=== PATIENT | male | born 1980 | race Caucasian/White ===

== ENCOUNTER 2017-07-24 09:55 | Emergency (ER) | payer BC, OTHER ==
[2017-07-24] MEDS ORDERED: Lidocaine 1% 20 ML MDV INJECT ONE (10:07)
[2017-07-24] MEDS ORDERED: Bacitracin Oint 1 GM U/D Packet TOP ONE (10:18)
--- NOTE | 2017-07-24 10:24 | EDM.PDOC ---
ED HPI GENERAL MEDICAL PROBLEM - General Chief Complaint: Laceration Stated Complaint: LT LOWER LEG HURTS Time Seen by Provider: 07/24/17 10:07 Source of Information: Reports: Patient History Limitations: Reports: No Limitations - History of Present Illness INITIAL COMMENTS - FREE TEXT/NARRATIVE: HISTORY AND PHYSICAL: History of present illness: Patient is a 37-year-old male who presents to the emergency room with complaints of laceration to the left medial tib-fib. He states he was using a saw and the back of the machine hit his right calf muscle and swung around hitting the left garcia, resulting in a laceration. He denies any numbness or tingling to his distal extremities. Tetanus is up-to-date. Review of systems: As per history of present illness and below otherwise all systems reviewed and negative. Past medical history: As per history of present illness and as reviewed below otherwise noncontributory. Surgical history: As per history of present illness and as reviewed below otherwise noncontributory. Social history: No reported history of drug or alcohol abuse. Family history: As per history of present illness and as reviewed below otherwise noncontributory. Physical exam: General: Well-developed and well-nourished 37-year-old male. Alert and oriented. Nontoxic appearing and in no acute distress. HEENT: Atraumatic, normocephalic, pupils equal and reactive bilaterally, negative for conjunctival pallor or scleral icterus, mucous membranes moist, throat clear, neck supple, nontender, trachea midline. No drooling or trismus noted. No meningeal signs Lungs: Clear to auscultation, breath sounds equal bilaterally, chest nontender. Heart: S1S2, regular rate and rhythm without overt murmur Abdomen: Soft, nondistended, nontender. Negative for masses or hepatosplenomegaly. Negative for costovertebral tenderness. Pelvis: Stable nontender. Genitourinary: Deferred. Rectal: Deferred. Skin: 2.5 cm gaping laceration to left medial mid lower extremity. Abrasion noted to right lateral calf. Intact, warm, dry. No lesions or rashes noted. Extremities: Moves all extremities per self without difficulty or deficits. Strong equal pulses bilaterally. Refill less than 3 seconds.He is negative for cords or calf pain. Neurovascular unremarkable. Neuro: Awake, alert, oriented. Cranial nerves II through XII unremarkable. Cerebellum unremarkable. Motor and sensory unremarkable throughout. Exam nonfocal. Notes: X-ray shows no foreign body, fracture or dislocations. Area was thoroughly cleansed with wound wash and chlorhexidine. No foreign bodies noted. Area was anesthetized with 1% lidocaine. Sterile technique was used. 4-0 nylon, 3 interrupted sutures applied. Patient tolerated well. Bacitracin, nonstick dressing secured with Shukri wrap plied to the left. He is requesting an Shukri wrap for the contusion to the right leg. Supportive care measures were reviewed. Signs and symptoms of infection that would prompt him to return were reviewed. Patient voices understanding and is agreeable to plan of care. He denies any further questions at this time. Diagnostics: X-ray Therapeutics: 1% lidocaine, wound care, suture repair, nonstick dressing Impression: Laceration Abrasion Plan: 1. Please monitor the area for signs of infection. Keep clean and dry. Sutures to be out in 10-12 days. 2. Tylenol and/or ibuprofen as needed for pain management. Rest, ice, and elevate both lower extremities. 3. Follow-up with your primary caregiver in the next 1-2 days. Return to the ED as needed and as discussed. Definitive disposition and diagnosis as appropriate pending reevaluation and review of above. Onset: Today Duration: Minutes: Left Lower Leg Pain Score (Numeric/FACES): 6 - Related Data Allergies Allergy/AdvReac Type Severity Reaction Status Date / Time codeine Allergy Intermediate Hives Verified 07/24/17 10:13 Home Meds: Home Meds Rivaroxaban [Xarelto] 20 mg PO DAILY 08/25/14 [History] Levothyroxine [Synthroid] 1 tab PO DAILY 07/24/17 [History] Past Medical History Cardiovascular History: Reports: Blood Clots/VTE/DVT Respiratory History: Reports: PE Endocrine/Metabolic History: Reports: Hypothyroidism Other Hematologic History: Factor 5 lyden - Infectious Disease History Infectious Disease History: Reports: Chicken Pox - Past Surgical History Other Male Surgeries/Procedures: visectomy Other Musculoskeletal Surgeries/Procedures:: back surgery Social & Family History - Family History Family Medical History: Noncontributory - Tobacco Use Smoking Status *Q: Former Smoker Years of Tobacco use: 15 Used Tobacco, but Quit: Yes Month/Year Tobacco Last Used: 2016 - Caffeine Use Caffeine Use: Reports: Energy Drinks - Alcohol Use Days Per Week of Alcohol Use: 7 Number of Drinks Per Day: 2 Total Drinks Per Week: 14 - Recreational Drug Use Recreational Drug Use: No ED ROS GENERAL - Review of Systems Review Of Systems: ROS reveals no pertinent complaints other than HPI. ED EXAM, SKIN/RASH Exam: See Below (See dictation) ED SKIN PROCEDURES - Laceration/Wound Repair Left medial calf Lac/Wound length In cm: 2.5 Appearance: Subcutaneous, Linear Distal NVT: Neuro & Vascular Intact, No Tendon Injury Anesthetic Type: Local Local Anesthesia - Lidocaine (Xylocaine): 1% Plain Local Anesthetic Volume: 5cc Skin Prep: Chlorhexidine (Hibiciens), Saline, Sterile Drape Saline Irrigation (cc's): 20 Exploration/Debridement/Repair: Wound Explored, No Foreign Material Found Closed with: Sutures Suture Size: 4-0 # of Sutures: 3 Suture Type: Interrupted Sterile Dressing Applied: Provider Tetanus Status Addressed: Yes Complications: No Course - Vital Signs Last Recorded V/S: Last Vital Signs Temp 95.4 F 07/24/17 10:08 Pulse 121 H 07/24/17 10:08 Resp 22 H 07/24/17 10:08 BP 130/96 H 07/24/17 10:08 Pulse Ox 99 07/24/17 10:08 - Orders/Labs/Meds Orders: Active Orders 24 hr Category Date Time Status Tibia Fibula Lt [CR] Stat Exams 07/24/17 10:18 Taken DME for Discharge [COMM] Stat Oth 07/24/17 11:07 Ordered Meds: Medications Discontinued Medications Generic Name Dose Route Start Last Admin Trade Name Emmanuel PRN Reason Stop Dose Admin Bacitracin 2 dose 07/24/17 10:18 07/24/17 10:29 Bacitracin Oint 1 Gm TOP 07/24/17 10:19 2 dose ONETIME ONE Administration Lidocaine HCl 20 ml 07/24/17 10:07 07/24/17 10:29 Xylocaine 1% INJECT 07/24/17 10:08 20 ml ONETIME ONE Administration Departure - Departure Time of Disposition: 11:10 Disposition: Home, Self-Care 01 Clinical Impression: Laceration, Abrasion - Discharge Information Instructions: Laceration Care, Adult, [id number] Referrals: PCP,None [Primary Care Provider] - Forms: ED Department Discharge Additional Instructions: The following information is given to patients seen in the emergency department who are being discharged to home. This information is to outline your options for follow-up care. We provide all patients seen in our emergency department with a follow-up referral. The need for follow-up, as well as the timing and circumstances, are variable depending upon the specifics of your emergency department visit. If you don't have a primary care physician on staff, we will provide you with a referral. We always advise you to contact your personal physician following an emergency department visit to inform them of the circumstance of the visit and for follow-up with them and/or the need for any referrals to a consulting specialist. The emergency department will also refer you to a specialist when appropriate. This referral assures that you have the opportunity for follow-up care with a specialist. All of these measure are taken in an effort to provide you with optimal care, which includes your follow-up. Under all circumstances we always encourage you to contact your private physician who remains a resource for coordinating your care. When calling for follow-up care, please make the office aware that this follow-up is from your recent emergency room visit. If for any reason you are refused follow-up, please contact the [facility] at and asked to speak to the emergency department charge nurse. [facility] [address] [place] [id number] 1. Please monitor the area for signs of infection. Keep clean and dry. Sutures to be out in 10-12 days. 2. Tylenol and/or ibuprofen as needed for pain management. Rest, ice, and elevate both lower extremities. 3. Follow-up with your primary caregiver in the next 1-2 days. Return to the ED as needed and as discussed. - My Orders Last 24 Hours: My Active Orders 07/24/17 10:18 Tibia Fibula Lt [CR] Stat 07/24/17 11:07 DME for Discharge [COMM] Stat - Assessment/Plan Last 24 Hours: My Active Orders 07/24/17 10:18 Tibia Fibula Lt [CR] Stat 07/24/17 11:07 DME for Discharge [COMM] Stat
[2017-07-24 11:21] VITALS: BP 136/89
--- NOTE | 2017-07-24 11:22 | CR ---
EXAMINATION: Left tibia and fibula HISTORY: Laceration COMPARISON: None TECHNIQUE: AP and lateral views FINDINGS/IMPRESSION: There is no acute osseous abnormality, dislocation, or fracture. Bone mineraliza tion and joint spaces appear preserved. No soft tissue swelling, foreign body, or subcutaneous gas ar e noted.
== END 2017-07-24 11:20 | disposition home or self-care (01) ==
LOC: MW.ED 09:55
DX: S81.812A Laceration without foreign body, left lower leg, initial encounter (principal); S80.811A Abrasion, right lower leg, initial encounter; E03.9 Hypothyroidism, unspecified; Z79.899 Other long term (current) drug therapy; Z88.5 Allergy status to narcotic agent; Z87.891 Personal history of nicotine dependence; W27.0XXA Contact with workbench tool, initial encounter
CPT/HCPCS: 73590-26-LT; 73590-LT; 99283

== ENCOUNTER 2018-11-03 19:10 | Observation (INO) | payer BC, MEDICAID ==
[2018-11-03] MEDS ORDERED: Sodium Chloride 0.9% 10 ML Syringe FLUSH PRN ×2 (19:12→22:52)
[2018-11-03] MEDS ORDERED: Sodium Chloride 0.9% 2.5 ML Syringe FLUSH PRN ×2 (19:12→22:52)
--- NOTE | 2018-11-03 19:24 | EDM.PDOC ---
ED HPI GENERAL MEDICAL PROBLEM - General Chief Complaint: Chest Pain Stated Complaint: BLOOD CLOT Time Seen by Provider: 11/03/18 19:16 Source of Information: Reports: Patient History Limitations: Reports: No Limitations - History of Present Illness INITIAL COMMENTS - FREE TEXT/NARRATIVE: HISTORY AND PHYSICAL: History of present illness: Patient is a 38-year-old male who presents to the emergency room with concerns of a PE and/or DVT. He states he has a history of PE and DVT and had previously been on anticoagulant therapy. History of Factor V. He had taken himself off of his Coumadin in May 2018, as he did not like the side effects he had experienced. He felt better after improving his diet and implementing exercise, and thought this would be sufficient to prevent any future blood clots. Over the last several days he has been riding in a vehicle and has noticed lower extremity swelling, pain and redness to the right calf. Has been resting and elevating the extremity over the past 2-3 days without any relief. Started to develop midsternal chest pain that goes into his back. Patient denies any fever, chills, headache, change in vision, syncope or near syncope. Denies any neck pain/stiffness, shortness of breath or cough. Denies any abdominal pain, nausea, vomiting, diarrhea, constipation or dysuria. Has not noted any blood in urine or stool. Patient has been eating and drinking appropriately. Review of systems: As per history of present illness and below otherwise all systems reviewed and negative. Past medical history: As per history of present illness and as reviewed below otherwise noncontributory. Surgical history: As per history of present illness and as reviewed below otherwise noncontributory. Social history: See social history for further information Family history: As per history of present illness and as reviewed below otherwise noncontributory. Physical exam: General: Well-developed and well-nourished 38-year-old male. Alert and oriented. Nontoxic appearing and in no acute distress. Vital signs are stable and have been reviewed by me, tachycardia noted. Service dog at bedside. HEENT: Atraumatic, normocephalic, pupils equal and reactive bilaterally, negative for conjunctival pallor or scleral icterus, mucous membranes moist, TMs normal bilaterally, throat clear, neck supple, nontender, trachea midline. No drooling or trismus noted. No meningeal signs. No hot potato voice noted. Lungs: Clear to auscultation, breath sounds equal bilaterally, chest nontender. Heart: S1S2, regular rate and rhythm, tachycardic- without overt murmur Abdomen: Soft, nondistended, nontender. Negative for masses or hepatosplenomegaly. Negative for costovertebral tenderness. Pelvis: Stable nontender. Genitourinary: Deferred. Rectal: Deferred. Skin: "Y" shaped erythema to the medial right calf with moderate swelling/edema of the right lower extremity. Otherwise skin is intact, warm, dry. No lesions or rashes noted. Extremities: Atraumatic, moves all extremities per self without difficulty or deficits, negative for cords or calf pain. Neurovascular unremarkable. Neuro: Awake, alert, oriented. Cranial nerves II through XII unremarkable. Cerebellum unremarkable. Motor and sensory unremarkable throughout. Exam nonfocal. Notes: Venous Doppler of the right lower extremity shows no DVT. Findings are consistent with acute superficial thrombophlebitis. CT chest shows: bilateral pulmonary emboli. A [id number] right pleural effusion with adjacent atelectasis. Partially imaged splenomegaly. Borderline thoracic lymph nodes, nonspecific. Dr Obrien was consult did on this case and agreeable to keeping this patient for further care and management. Diagnostics: CBC, CMP, UA, PT INR, CT angio-chest, ultrasound right lower extremity Therapeutics: IV fluids, Lovenox 100 subQ, Heparin Drip Impression: Medication non-compliance Thrombophlebitis, right lower extremity Bilateral PE Plan: Observation admission to Med/Surg Definitive disposition and diagnosis as appropriate pending reevaluation and review of above. Chest Pain Score (Numeric/FACES): 5 - Related Data Allergies Allergy/AdvReac Type Severity Reaction Status Date / Time codeine Allergy Intermediate Hives Verified 11/03/18 22:10 Home Meds: Home Meds Multivitamin/Iron/Folic Acid [Centrum Adults Tablet] 1 each PO DAILY 11/03/18 [ History] Past Medical History HEENT History: Reports: None Cardiovascular History: Reports: Blood Clots/VTE/DVT Respiratory History: Reports: PE Gastrointestinal History: Reports: None Genitourinary History: Reports: None Other Musculoskeletal History: patient reports he lifted dog yesterday, and felt a "pop" in right upper arm and has had pain ever since. Patient reports pain 10/10 ro right upper arm. Patient noted to have edema to right lower leg. Neurological History: Reports: None Psychiatric History: Reports: None Endocrine/Metabolic History: Reports: Hypothyroidism Other Hematologic History: Factor 5 lyden Immunologic History: Reports: None Oncologic (Cancer) History: Reports: None - Infectious Disease History Infectious Disease History: Reports: Chicken Pox - Past Surgical History Other Male Surgeries/Procedures: visectomy Other Musculoskeletal Surgeries/Procedures:: back surgery Social & Family History - Family History Family Medical History: Noncontributory - Tobacco Use Smoking Status *Q: Never Smoker - Caffeine Use Caffeine Use: Reports: Energy Drinks - Recreational Drug Use Recreational Drug Use: Yes Drug Use in Last 12 Months: Yes Recreational Drug Type: Reports: Marijuana/Hashish Recreational Drug Use Frequency: Socially ED ROS GENERAL - Review of Systems Review Of Systems: ROS reveals no pertinent complaints other than HPI. ED EXAM, GENERAL - Physical Exam Exam: See Below (See dictation) Course - Vital Signs Last Recorded V/S: Last Vital Signs Temp 97.9 F 11/03/18 22:14 Pulse 107 H 11/03/18 22:14 Resp 24 H 11/03/18 22:14 BP 121/73 11/03/18 22:14 Pulse Ox 94 L 11/03/18 22:14 - Orders/Labs/Meds Orders: Active Orders 24 hr Category Date Time Status Sodium Chloride 0.9% [Normal Saline] 1,000 ml Med 11/03/18 21:08 Active IV STAT Sodium Chloride 0.9% [Saline Flush] Med 11/03/18 19:12 Active 10 ml FLUSH ASDIRECTED PRN Sodium Chloride 0.9% [Saline Flush] Med 11/03/18 19:12 Active 2.5 ml FLUSH ASDIRECTED PRN Saline Lock Insert [OM.PC] Stat Oth 11/03/18 19:12 Ordered Medication Orders Sodium Chloride (Normal Saline) 1,000 mls @ 150 mls/hr IV STAT ONE Stop: 11/04/18 03:47 Last Admin: 11/03/18 21:28 Dose: 150 mls/hr Sodium Chloride (Saline Flush) 10 ml FLUSH ASDIRECTED PRN PRN Reason: Keep Vein Open Sodium Chloride (Saline Flush) 2.5 ml FLUSH ASDIRECTED PRN PRN Reason: Keep Vein Open Labs: Laboratory Tests 11/03/18 11/03/18 11/03/18 Range/Units 19:10 19:10 19:10 WBC 8.93 (4.0-11.0) K/uL RBC 5.32 (4.50-5.90) M/uL Hgb 15.2 (13.0-17.0) g/dL Hct 45.3 (38.0-50.0) % MCV 85.2 (80.0-98.0) fL MCH 28.6 (27.0-32.0) pg MCHC 33.6 (31.0-37.0) g/dL RDW Std Deviation 40.7 (28.0-62.0) fl RDW Coeff of Kavon 13 (11.0-15.0) % Plt Count 295 (150-400) K/uL MPV 9.90 (7.40-12.00) fL Neut % (Auto) 73.5 (48.0-80.0) % Lymph % (Auto) 9.7 L (16.0-40.0) % [place] % (Auto) 9.7 (0.0-15.0) % Eos % (Auto) 6.4 (0.0-7.0) % Baso % (Auto) 0.7 (0.0-1.5) % Neut # (Auto) 6.6 H (1.4-5.7) K/uL Lymph # (Auto) 0.9 (0.6-2.4) K/uL [place] # (Auto) 0.9 H (0.0-0.8) K/uL Eos # (Auto) 0.6 (0.0-0.7) K/uL Baso # (Auto) 0.1 (0.0-0.1) K/uL Nucleated RBC % 0.0 /100WBC Nucleated RBCs # 0 K/uL INR 0.97 Sodium 140 (136-148) mmol/L Potassium 4.0 (3.5-5.1) mmol/L Chloride 105 (98-107) mmol/L Carbon Dioxide 27.5 (21.0-32.0) mmol/L BUN 14 (7.0-18.0) mg/dL Creatinine 1.0 (0.8-1.3) mg/dL Est Cr Clr Drug Dosing 108.86 mL/min Estimated GFR (MDRD) > 60.0 ml/min Glucose 96 (74-106) mg/dL Calcium 8.6 (8.5-10.1) mg/dL Total Bilirubin 0.4 (0.2-1.0) mg/dL AST 16 (15-37) IU/L ALT 19 (14-63) IU/L Alkaline Phosphatase 82 (46-116) U/L Troponin I < 0.050 (0.000-0.056) ng/mL Total Protein 7.4 (6.4-8.2) g/dL Albumin 2.9 L (3.4-5.0) g/dL Globulin 4.5 H (2.6-4.0) g/dL Albumin/Globulin Ratio 0.6 L (0.9-1.6) Meds: Medications Generic Name Dose Route Start Last Admin Trade Name Freq PRN Reason Stop Dose Admin Sodium Chloride 1,000 mls @ 150 mls/hr 11/03/18 21:08 11/03/18 21:28 Normal Saline IV 11/04/18 03:47 150 mls/hr STAT ONE Administration Sodium Chloride 10 ml 11/03/18 19:12 Saline Flush FLUSH ASDIRECTED PRN Keep Vein Open Sodium Chloride 2.5 ml 11/03/18 19:12 Saline Flush FLUSH ASDIRECTED PRN Keep Vein Open Discontinued Medications Generic Name Dose Route Start Last Admin Trade Name Freq PRN Reason Stop Dose Admin Enoxaparin Sodium 100 mg 11/03/18 20:27 11/03/18 20:46 Lovenox SUBCUT 11/03/18 20:28 100 mg ONETIME ONE Administration Iopamidol 100 ml 11/03/18 20:22 11/03/18 21:10 Isovue-370 (76%) IVPUSH 11/03/18 20:23 100 ml ONETIME ONE Administration Departure - Departure Time of Disposition: 22:30 Disposition: Refer to Observation Clinical Impression: Bilateral pulmonary embolism, Noncompliance with medication regimen, Thrombophlebitis - My Orders Last 24 Hours: My Active Orders 11/03/18 19:12 Sodium Chloride 0.9% [Saline Flush] 10 ml FLUSH ASDIRECTED PRN Sodium Chloride 0.9% [Saline Flush] 2.5 ml FLUSH ASDIRECTED PRN Saline Lock Insert [OM.PC] Stat 11/03/18 21:08 Sodium Chloride 0.9% [Normal Saline] 1,000 ml IV STAT - Assessment/Plan Last 24 Hours: My Active Orders 11/03/18 19:12 Sodium Chloride 0.9% [Saline Flush] 10 ml FLUSH ASDIRECTED PRN Sodium Chloride 0.9% [Saline Flush] 2.5 ml FLUSH ASDIRECTED PRN Saline Lock Insert [OM.PC] Stat 11/03/18 21:08 Sodium Chloride 0.9% [Normal Saline] 1,000 ml IV STAT
[2018-11-03 19:44] LABS: BLOOD UREA NITROGEN,BUN 14 mg/dL (7.0-18.0); CARBON DIOXIDE,CO2 27.5 mmol/L (21.0-32.0); CHLORIDE,CL 105 mmol/L (98-107); GLUCOSE RANDOM 96 mg/dL (74-106); SODIUM,NA 140 mmol/L (136-148)
--- NOTE | 2018-11-03 20:20 | CR ---
INDICATION: Pain. TECHNIQUE: Portable upright AP view of the chest. COMPARISON: None. FINDINGS: Cardiac, mediastinal and hilar contours are within normal limits. Pulmonary vasculature is unremarkable. Lungs are grossly clear. No appreciable pleural fluid on this single view study. No pneumothorax. Nonspecific radiopaque foreign body overlying the left lower lateral hemithorax. IMPRESSION: No signs of acute thoracic disease. See above. Dictated by Leonardo Hartman MD @ 11/03/2018 8:19:06 PM Dictated by: Leonardo Hartman MD @ 11/03/2018 20:19:18 (Electronically Signed)
[2018-11-03] MEDS ORDERED: Iopamidol 755 Mg/ML 100 ML Bottle IVPUSH ONE (20:22)
[2018-11-03] MEDS ORDERED: Enoxaparin 100 MG/1 ML Syringe SUBCUT ONE (20:27)
--- NOTE | 2018-11-03 20:32 | US ---
INDICATION: Previous DVT and pulmonary embolus. On and off meds for treatment of such since May. Redness and pain right calf. TECHNIQUE: Ultrasound venous duplex lower right extremity. Compression venous exam was performed using soto-scale, color Doppler, and spectral Doppler imaging. COMPARISON: Right lower extremity venous ultrasound 03/15/2018 FINDINGS: Sonographic imaging demonstrates the right common femoral, deep femoral, superficial femoral, popliteal, posterior tibial, peroneal and greater saphenous and the contralateral left common femoral veins to be fully compressible with normal color Doppler blood flow. In the region of pain and redness, in the right medial mid calf there are superficial veins which do not compress on grayscale imaging indicating acute superficial thrombophlebitis. Remainder negative. IMPRESSION: : No DVT right leg. Sonographic findings consistent with acute superficial thrombophlebitis in the region of pain and redness in the right medial mid calf. Dictated by Erich Shah MD @ Nov 03 2018 8:26PM Signed by Dr. Ercih Shah @ Nov 03 2018 8:31PM
[2018-11-03] MEDS ORDERED: Sodium Chloride 0.9% 1,000 ML IV ONE (21:08)
--- NOTE | 2018-11-03 22:27 | CT ---
INDICATION: Chest pain and shortness of breath TECHNIQUE: CT chest pulmonary PE protocol acquired with IV contrast. 100 mL of Isovue 370 administered. COMPARISON: 03/15/2018 FINDINGS: Cardiovascular structures: Filling defects in bilateral segmental and subsegmental pulmonary arteries, right greater than left. Normal cardiac size and aortic caliber. Mediastinum and ramu: An apparent borderline superior right hilar lymph node and a borderline azygoesophageal lymph node. Shotty subcentimeter lymph nodes anterior to the distal esophagus, nonspecific. Lungs: Atelectatic changes in the right lower lobe and additional foci of minor compressive changes. Pleura and pericardium: A moderate to large right pleural effusion. Small anterior pericardial fluid. Chest wall and axilla: No mass or adenopathy. Upper abdomen: A 2.5 x 1.9 cm water attenuation superior hepatic lesion compatible with a cyst and a 1 cm anterior left hepatic low-density lesion which could represent an additional cyst. Partially imaged splenomegaly. A 1.2 cm left adrenal low-density nodule, probably an adenoma. Bones: Mild focal central compression along the T11 superior endplate. IMPRESSION: Bilateral pulmonary emboli. A [id number] right pleural effusion with adjacent atelectasis. Partially imaged splenomegaly. Borderline thoracic lymph nodes, nonspecific. Correlate clinically. The pertinent findings were discussed with Dr. Vásquez, by phone, on 11/03/2018 at 10:20 p.m.. Dictated by Guero Sterling MD @ 11/03/2018 10:26:29 PM Please note that all CT scans at this facility use dose modulation, iterative reconstruction, and/or weight-based dosing when appropriate to reduce radiation dose to as low as reasonably achievable. Dictated by: Guero Sterling MD @ 11/03/2018 22:26:39 (Electronically Signed)
[2018-11-03] MEDS ORDERED: Heparin Sodium 5,000 Units/ML Vial IVPUSH ONE (22:40)
[2018-11-03] MEDS ORDERED: Acetaminophen 325 MG Tab PO PRN (22:46)
[2018-11-03] MEDS: Heparin Sod,Pork In 0.45% Nacl 25,000 UNIT/500 ML IV.SOLN IV SCH (23:06)
[2018-11-04 04:38] LABS: BLOOD UREA NITROGEN,BUN 12 mg/dL (7.0-18.0); CARBON DIOXIDE,CO2 27.5 mmol/L (21.0-32.0); CHLORIDE,CL 106 mmol/L (98-107); GLUCOSE RANDOM 95 mg/dL (74-106); POTASSIUM,K 4.9 mmol/L (3.5-5.1); SODIUM,NA 139 mmol/L (136-148)
--- NOTE | 2018-11-04 07:41 | PCM.HP ---
H&P History of Present Illness - General Date of Service: 11/04/18 Admit Problem/Dx: Admission Diagnosis/Problem Admission Diagnosis/Problem Chest pain, rule out acute myocardial infarction Source of Information: Patient History Limitations: Reports: No Limitations - History of Present Illness Initial Comments - Free Text/Narative: The patient is a 38-year-old gentleman who had presented to the emergency department with severe chest pain and pressure along with some shortness of breath. The patient has a history of factor V Leiden mutation and had previously been taking Xarelto or Coumadin. The patient has a service dog who is with him. He has reported that this is for his seizure activity. The patient had taken himself off of all of his medications as he was concerned about the side effects. The patient says that he had been taking a long road trip and the result of this was that he had pain in his leg and he said he could feel the clot move up into his lungs. Onset of Symptoms: Reports: Gradual Duration of Symptoms: Reports: Day(s):, Improving Location: Reports: Chest, Lower Extremity, Right Quality: Reports: Ache, Pressure, Stabbing Severity: Moderate Improves with: Reports: Medication Worsens with: Reports: Movement Context: Reports: Travel Associated Symptoms: Reports: Cough, Shortness of Breath Chest Pain Score (Numeric/FACES): 5 - Related Data Allergies/Adverse Reactions: Allergies Allergy/AdvReac Type Severity Reaction Status Date / Time codeine Allergy Intermediate Hives Verified 11/03/18 22:10 Home Medications: Home Meds Multivitamin/Iron/Folic Acid [Centrum Adults Tablet] 1 each PO DAILY 11/03/18 [ History] Past Medical History HEENT History: Reports: None Cardiovascular History: Reports: Blood Clots/VTE/DVT Respiratory History: Reports: PE Gastrointestinal History: Reports: None Genitourinary History: Reports: None Other Musculoskeletal History: patient reports he lifted dog yesterday, and felt a "pop" in right upper arm and has had pain ever since. Patient reports pain 10/10 ro right upper arm. Patient noted to have edema to right lower leg. Neurological History: Reports: Seizure Psychiatric History: Reports: None Endocrine/Metabolic History: Reports: Hypothyroidism Other Hematologic History: Factor 5 lyden Immunologic History: Reports: None Oncologic (Cancer) History: Reports: None - Infectious Disease History Infectious Disease History: Reports: Chicken Pox - Past Surgical History Other Male Surgeries/Procedures: visectomy Other Musculoskeletal Surgeries/Procedures:: back surgery Social & Family History - Family History Family Medical History: Noncontributory - Tobacco Use Smoking Status *Q: Never Smoker Second Hand Smoke Exposure: No - Caffeine Use Caffeine Use: Reports: Energy Drinks - Recreational Drug Use Recreational Drug Use: Yes Drug Use in Last 12 Months: Yes Recreational Drug Type: Reports: Marijuana/Hashish Recreational Drug Use Frequency: Socially - Living Situation & Occupation Living situation: Reports: Single Occupation: Unemployed H&P Review of Systems - Review of Systems: Review Of Systems: See Below General: Reports: No Symptoms HEENT: Reports: No Symptoms Pulmonary: Reports: Shortness of Breath, Cough. Denies: Hemoptysis Cardiovascular: Reports: Chest Pain Gastrointestinal: Reports: No Symptoms Genitourinary: Reports: No Symptoms Musculoskeletal: Reports: No Symptoms Skin: Reports: No Symptoms Psychiatric: Reports: No Symptoms Neurological: Reports: Seizure Hematologic/Lymphatic: Reports: No Symptoms Immunologic: Reports: No Symptoms Exam - Exam Exam: See Below - Vital Signs Vital Signs: Last Vital Signs Temp 36.5 C 11/04/18 04:00 Pulse 88 11/04/18 04:00 Resp 18 11/04/18 04:00 BP 88/62 L 11/04/18 04:00 Pulse Ox 95 11/04/18 04:00 Weight: 104.961 kg - Exam Quality Assessment: No: Supplemental Oxygen General: Alert, Oriented HEENT: Conjunctiva Clear, EACs Clear, EOMI, Mucosa Moist & [place], Pupils Equal, PERRLA Neck: Supple, Trachea Midline Lungs: Clear to Auscultation, Normal Respiratory Effort Cardiovascular: Regular Rhythm, Normal S1, Normal S2, Tachycardia GI/Abdominal Exam: Normal Bowel Sounds, Soft, Non-Tender, No Distention Back Exam: Normal Inspection, Full Range of Motion Extremities: Normal Inspection, No Pedal Edema Skin: Warm, Dry, Intact Neurological: Cranial Nerves Intact Neuro Extensive - Mental Status: Alert, Oriented x3 Neuro Extensive - Motor, Sensory, Reflexes: CN II-XII Intact Psychiatric: Alert, Normal Affect - Patient Data Lab Results Last 24 hrs: Laboratory Results - last 24 hr 11/03/18 11/03/18 11/03/18 Range/Units 19:10 19:10 19:10 WBC 8.93 (4.0-11.0) K/uL RBC 5.32 (4.50-5.90) M/uL Hgb 15.2 (13.0-17.0) g/dL Hct 45.3 (38.0-50.0) % MCV 85.2 (80.0-98.0) fL MCH 28.6 (27.0-32.0) pg MCHC 33.6 (31.0-37.0) g/dL RDW Std Deviation 40.7 (28.0-62.0) fl RDW Coeff of Kavon 13 (11.0-15.0) % Plt Count 295 (150-400) K/uL MPV 9.90 (7.40-12.00) fL Neut % (Auto) 73.5 (48.0-80.0) % Lymph % (Auto) 9.7 L (16.0-40.0) % Lake % (Auto) 9.7 (0.0-15.0) % Eos % (Auto) 6.4 (0.0-7.0) % Baso % (Auto) 0.7 (0.0-1.5) % Neut # (Auto) 6.6 H (1.4-5.7) K/uL Lymph # (Auto) 0.9 (0.6-2.4) K/uL Lake # (Auto) 0.9 H (0.0-0.8) K/uL Eos # (Auto) 0.6 (0.0-0.7) K/uL Baso # (Auto) 0.1 (0.0-0.1) K/uL Nucleated RBC % 0.0 /100WBC Nucleated RBCs # 0 K/uL INR 0.97 APTT (18.6-31.3) SEC Sodium 140 (136-148) mmol/L Potassium 4.0 (3.5-5.1) mmol/L Chloride 105 (98-107) mmol/L Carbon Dioxide 27.5 (21.0-32.0) mmol/L BUN 14 (7.0-18.0) mg/dL Creatinine 1.0 (0.8-1.3) mg/dL Est Cr Clr Drug Dosing 108.86 mL/min Estimated GFR (MDRD) > 60.0 ml/min Glucose 96 (74-106) mg/dL Calcium 8.6 (8.5-10.1) mg/dL Total Bilirubin 0.4 (0.2-1.0) mg/dL AST 16 (15-37) IU/L ALT 19 (14-63) IU/L Alkaline Phosphatase 82 (46-116) U/L Troponin I < 0.050 (0.000-0.056) ng/mL Total Protein 7.4 (6.4-8.2) g/dL Albumin 2.9 L (3.4-5.0) g/dL Globulin 4.5 H (2.6-4.0) g/dL Albumin/Globulin Ratio 0.6 L (0.9-1.6) 11/03/18 11/04/18 11/04/18 Range/Units 22:49 01:00 04:18 WBC 7.68 (4.0-11.0) K/uL RBC 4.96 (4.50-5.90) M/uL Hgb 13.9 (13.0-17.0) g/dL Hct 42.3 (38.0-50.0) % MCV 85.3 (80.0-98.0) fL MCH 28.0 (27.0-32.0) pg MCHC 32.9 (31.0-37.0) g/dL RDW Std Deviation 41.3 (28.0-62.0) fl RDW Coeff of Kavon 13 (11.0-15.0) % Plt Count 257 (150-400) K/uL MPV 9.50 (7.40-12.00) fL Neut % (Auto) 63.2 (48.0-80.0) % Lymph % (Auto) 16.4 (16.0-40.0) % Lake % (Auto) 10.9 (0.0-15.0) % Eos % (Auto) 9.0 H (0.0-7.0) % Baso % (Auto) 0.5 (0.0-1.5) % Neut # (Auto) 4.9 (1.4-5.7) K/uL Lymph # (Auto) 1.3 (0.6-2.4) K/uL Lake # (Auto) 0.8 (0.0-0.8) K/uL Eos # (Auto) 0.7 (0.0-0.7) K/uL Baso # (Auto) 0.0 (0.0-0.1) K/uL Nucleated RBC % 0.0 /100WBC Nucleated RBCs # 0 K/uL INR APTT 32.0 H (18.6-31.3) SEC Sodium (136-148) mmol/L Potassium (3.5-5.1) mmol/L Chloride (98-107) mmol/L Carbon Dioxide (21.0-32.0) mmol/L BUN (7.0-18.0) mg/dL Creatinine (0.8-1.3) mg/dL Est Cr Clr Drug Dosing mL/min Estimated GFR (MDRD) ml/min Glucose (74-106) mg/dL Calcium (8.5-10.1) mg/dL Total Bilirubin (0.2-1.0) mg/dL AST (15-37) IU/L ALT (14-63) IU/L Alkaline Phosphatase (46-116) U/L Troponin I < 0.050 (0.000-0.056) ng/mL Total Protein (6.4-8.2) g/dL Albumin (3.4-5.0) g/dL Globulin (2.6-4.0) g/dL Albumin/Globulin Ratio (0.9-1.6) 11/04/18 11/04/18 11/04/18 Range/Units 04:18 04:18 07:02 WBC (4.0-11.0) K/uL RBC (4.50-5.90) M/uL Hgb (13.0-17.0) g/dL Hct (38.0-50.0) % MCV (80.0-98.0) fL MCH (27.0-32.0) pg MCHC (31.0-37.0) g/dL RDW Std Deviation (28.0-62.0) fl RDW Coeff of Kavon (11.0-15.0) % Plt Count (150-400) K/uL MPV (7.40-12.00) fL Neut % (Auto) (48.0-80.0) % Lymph % (Auto) (16.0-40.0) % Lake % (Auto) (0.0-15.0) % Eos % (Auto) (0.0-7.0) % Baso % (Auto) (0.0-1.5) % Neut # (Auto) (1.4-5.7) K/uL Lymph # (Auto) (0.6-2.4) K/uL Lake # (Auto) (0.0-0.8) K/uL Eos # (Auto) (0.0-0.7) K/uL Baso # (Auto) (0.0-0.1) K/uL Nucleated RBC % /100WBC Nucleated RBCs # K/uL INR APTT 53.2 H (18.6-31.3) SEC Sodium 139 (136-148) mmol/L Potassium 4.9 (3.5-5.1) mmol/L Chloride 106 (98-107) mmol/L Carbon Dioxide 27.5 (21.0-32.0) mmol/L BUN 12 (7.0-18.0) mg/dL Creatinine 1.0 (0.8-1.3) mg/dL Est Cr Clr Drug Dosing 105.63 mL/min Estimated GFR (MDRD) > 60.0 ml/min Glucose 95 (74-106) mg/dL Calcium 8.3 L (8.5-10.1) mg/dL Total Bilirubin (0.2-1.0) mg/dL AST (15-37) IU/L ALT (14-63) IU/L Alkaline Phosphatase (46-116) U/L Troponin I < 0.050 (0.000-0.056) ng/mL Total Protein (6.4-8.2) g/dL Albumin (3.4-5.0) g/dL Globulin (2.6-4.0) g/dL Albumin/Globulin Ratio (0.9-1.6) Result Diagrams: 11/04/18 04:18 11/04/18 04:18 - Problem List (1) Bilateral pulmonary embolism SNOMED Code(s): 56972652 ICD Code: I26.99 - OTHER PULMONARY EMBOLISM WITHOUT ACUTE COR PULMONALE Status: Acute Priority: High Current Visit: Yes (2) Memory deficits SNOMED Code(s): 886118484 ICD Code: R41.3 - OTHER AMNESIA Status: Chronic Priority: Medium Current Visit: Yes (3) Noncompliance with medication regimen SNOMED Code(s): 475712857 ICD Code: Z91.14 - PATIENT'S OTHER NONCOMPLIANCE WITH MEDICATION REGIMEN Status: Chronic Priority: High Current Visit: Yes (4) Thrombophilia SNOMED Code(s): 441919846 ICD Code: D68.59 - OTHER PRIMARY THROMBOPHILIA Status: Chronic Priority: High Current Visit: Yes (5) Hypothyroidism SNOMED Code(s): 59301029 ICD Code: E03.9 - HYPOTHYROIDISM, UNSPECIFIED Status: Chronic Priority: High Current Visit: Yes Qualifiers: Hypothyroidism type: acquired Qualified Code(s): E03.9 - Hypothyroidism, unspecified Problem List Initiated/Reviewed/Updated: Yes Orders Last 24hrs: Active Orders 24 hr Category Date Time Status Admission Status [Patient Status] [ADT] Stat ADT 11/03/18 21:21 Active EKG 12 Lead [EKG Documentation Completion] [RC] AM Care 11/04/18 07:00 Active Telemetry Monitoring [Cardiac Monitoring] [RC] Q8H Care 11/03/18 21:55 Active Heart Healthy Diet [DIET] Diet 11/04/18 Breakfast Active aPTT [PTT,PARTIAL THROMBOPLSTIN TIME] [COAG] Routine Lab 11/04/18 09:10 Ordered Acetaminophen [Tylenol] Med 11/03/18 22:46 Active 650 mg PO Q6H PRN Heparin Sod,Pork In 0.45% Nacl [Heparin-1/2Ns 25,000 Med 11/03/18 22:30 Active Units/500] 25,000 unit in 500 ml IV TITRATE Sodium Chloride 0.9% [Saline Flush] Med 11/03/18 19:12 Active 10 ml FLUSH ASDIRECTED PRN Sodium Chloride 0.9% [Saline Flush] Med 11/03/18 19:12 Active 2.5 ml FLUSH ASDIRECTED PRN Convert IV to Saline Lock [OM.PC] Routine Oth 11/03/18 22:52 Ordered Saline Lock Insert [OM.PC] Stat Oth 11/03/18 19:12 Ordered Medication Orders Acetaminophen (Tylenol) 650 mg PO Q6H PRN PRN Reason: Pain Heparin Sodium/Sodium Chloride (Heparin-1/2ns 25,000 Units/500) 25,000 unit in 500 mls @ 37.786 mls/hr IV TITRATE HERMANN; Protocol Last Titration: 11/04/18 04:51 Dose: 18 units/kg/hr, 37.786 mls/hr Admin: 11/03/18 23:06 Dose: 18 units/kg/hr, 37.786 mls/hr Sodium Chloride (Saline Flush) 10 ml FLUSH ASDIRECTED PRN PRN Reason: Keep Vein Open Sodium Chloride (Saline Flush) 2.5 ml FLUSH ASDIRECTED PRN PRN Reason: Keep Vein Open Assessment/Plan Comment:: The patient is 38-year-old gentleman who apparently has factor V Leiden mutation and 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 The patient had a CT scan which showed bilateral pulmonary emboli and the patient will be placed on treatment dose of Lovenox at 150 mg every 12 hours. Heparin drip is been discontinued. Patient also has a long history of noncompliance and I had a long discussion with the patient with regards to this. He also is hypothyroid with an elevated TSH and I placed the patient on 88 g of Synthroid. Ordered repeat laboratory testings for the morning. The patient also has his service dog with him and this is due to seizures. Although there is no specific indication as to what has caused this. The patient will need to have follow-up with neurology.
[2018-11-04] MEDS ORDERED: Albuterol 0.083% 2.5 MG/3 ML Neb Soln NEB PRN (07:44)
[2018-11-04] MEDS: Heparin Sod,Pork In 0.45% Nacl 25,000 UNIT/500 ML IV.SOLN IV SCH (10:44)
[2018-11-04] MEDS ORDERED: Enoxaparin 150 MG/1 ML Syringe SUBCUT SCH (16:45)
[2018-11-04] MEDS: Enoxaparin 100 MG/1 ML Syringe SUBCUT SCH (18:33)
[2018-11-05] MEDS: Enoxaparin 100 MG/1 ML Syringe SUBCUT SCH (04:41)
[2018-11-05 06:53] LABS: BLOOD UREA NITROGEN,BUN 12 mg/dL (7.0-18.0); CARBON DIOXIDE,CO2 28.5 mmol/L (21.0-32.0); CHLORIDE,CL 104 mmol/L (98-107); GLUCOSE RANDOM 100 mg/dL (74-106); POTASSIUM,K 4.6 mmol/L (3.5-5.1); SODIUM,NA 139 mmol/L (136-148)
[2018-11-05] MEDS ORDERED: Levothyroxine 88 MCG Tab PO SCH (07:30)
[2018-11-05 13:32] VITALS: BP 130/56; PULSE 98
[2018-11-05] MEDS ORDERED: Rivaroxaban 15 MG Tab PO STA (14:28)
--- NOTE | 2018-11-05 17:25 | PCM.DCSUM1 ---
<Claudio Joshua - Last Filed: 11/05/18 17:17> Discharge Summary - Hospital Course Free Text/Narrative:: Patient is a 38-year-old male admitted for bilateral pulmonary embolism. He was also found to have acute superficial thrombophlebitis of his right lower extremity. Patient has a past medical history of factor V leiden mutation with DVT and PE. He had been on coumadin and xarelto in the past, however, stopped taking all of his medications several months ago. On admission, CT angio revealed bilateral pulmonary embolisms and venous doppler ultrasound showed thrombophlebitis in right leg with no DVT. Patient was started on Lovenox for PE treatment while hospitalized and was discharged on Xarelto. Patient will require indefinite anticoagulation considering his history of factor V leiden and recurrent DVT and PE. This was explained at length to patient and importance of medication complication was stressed. He also has history of hypothyroidism and had not been taking his prescribed medication and was restarted on levothyroxine. Furthermore, patient has history of seizures and has a dog for this. Patient would benefit from neurology referral. - Discharge Data Discharge Date: 11/05/18 Discharge Disposition: Home, Self-Care 01 Condition: Stable - Discharge Plan *PRESCRIPTION DRUG MONITORING PROGRAM REVIEWED*: Not Applicable *COPY OF PRESCRIPTION DRUG MONITORING REPORT IN PATIENT YOVANI: Not Applicable Prescriptions/Med Rec: Levothyroxine [Synthroid] 88 mcg PO ACBREAKFAST 30 Days #30 tablet Rivaroxaban [Xarelto] 15 mg PO BID 21 Days #42 tablet Rivaroxaban [Xarelto] 20 mg PO DAILY 30 Days #30 tablet Home Medications: Home Meds Multivitamin/Iron/Folic Acid [Centrum Adults Tablet] 1 each PO DAILY 11/03/18 [ History] Levothyroxine [Synthroid] 88 mcg PO ACBREAKFAST 30 Days #30 tablet 11/05/18 [Rx] Rivaroxaban [Xarelto] 15 mg PO BID 21 Days #42 tablet 11/05/18 [Rx] Rivaroxaban [Xarelto] 20 mg PO DAILY 30 Days #30 tablet 11/05/18 [Rx] Patient Handouts: Levothyroxine tablets, Rivaroxaban oral tablets, Pulmonary Embolism Referrals: Claudio Joshua MD [Resident] - 11/21/18 1:30 pm - Discharge Summary/Plan Comment DC Time >30 min.: No - Patient Data Vitals - Most Recent: Last Vital Signs Temp 97.1 F 11/05/18 11:00 Pulse 98 11/05/18 11:00 Resp 18 11/05/18 11:00 BP 130/56 L 11/05/18 11:00 Pulse Ox 95 11/05/18 11:00 Weight - Most Recent: 104.961 kg I&O - Last 24 hours: Intake & Output 11/05/18 11/05/18 11/05/18 06:59 14:59 22:59 Intake Total 0 300 Output Total 0 950 Balance 0 -650 Lab Results - Last 24 hrs: Laboratory Results - last 24 hr 11/04/18 11/05/18 11/05/18 Range/Units 21:18 05:52 05:52 WBC 6.14 (4.0-11.0) K/uL RBC 5.17 (4.50-5.90) M/uL Hgb 14.4 (13.0-17.0) g/dL Hct 43.9 (38.0-50.0) % MCV 84.9 (80.0-98.0) fL MCH 27.9 (27.0-32.0) pg MCHC 32.8 (31.0-37.0) g/dL RDW Std Deviation 40.7 (28.0-62.0) fl RDW Coeff of Kavon 13 (11.0-15.0) % Plt Count 310 (150-400) K/uL MPV 9.90 (7.40-12.00) fL Neut % (Auto) 59.3 (48.0-80.0) % Lymph % (Auto) 17.8 (16.0-40.0) % Cass % (Auto) 9.6 (0.0-15.0) % Eos % (Auto) 12.2 H (0.0-7.0) % Baso % (Auto) 1.1 (0.0-1.5) % Neut # (Auto) 3.6 (1.4-5.7) K/uL Lymph # (Auto) 1.1 (0.6-2.4) K/uL Cass # (Auto) 0.6 (0.0-0.8) K/uL Eos # (Auto) 0.8 H (0.0-0.7) K/uL Baso # (Auto) 0.1 (0.0-0.1) K/uL Nucleated RBC % 0.0 /100WBC Nucleated RBCs # 0 K/uL APTT 33.8 H (18.6-31.3) SEC Sodium 139 (136-148) mmol/L Potassium 4.6 (3.5-5.1) mmol/L Chloride 104 (98-107) mmol/L Carbon Dioxide 28.5 (21.0-32.0) mmol/L BUN 12 (7.0-18.0) mg/dL Creatinine 0.9 (0.8-1.3) mg/dL Est Cr Clr Drug Dosing 117.37 mL/min Estimated GFR (MDRD) > 60.0 ml/min Glucose 100 (74-106) mg/dL Calcium 8.8 (8.5-10.1) mg/dL Total Bilirubin 0.3 (0.2-1.0) mg/dL AST 10 L (15-37) IU/L ALT 18 (14-63) IU/L Alkaline Phosphatase 67 (46-116) U/L Total Protein 6.9 (6.4-8.2) g/dL Albumin 2.6 L (3.4-5.0) g/dL Globulin 4.3 H (2.6-4.0) g/dL Albumin/Globulin Ratio 0.6 L (0.9-1.6) Med Orders - Current: Current Medications Discontinued Medications Acetaminophen (Tylenol) 650 mg PO Q6H PRN PRN Reason: Pain Albuterol (Proventil Neb Soln) 2.5 mg NEB Q2H PRN PRN Reason: Shortness Of Breath/wheezing Enoxaparin Sodium (Lovenox) 100 mg SUBCUT ONETIME ONE Stop: 11/03/18 20:28 Last Admin: 11/03/18 20:46 Dose: 100 mg Enoxaparin Sodium (Lovenox) 150 mg SUBCUT Q12H HERMANN Enoxaparin Sodium (Lovenox) 100 mg SUBCUT Q12H HERMANN Last Admin: 11/05/18 04:41 Dose: 100 mg Heparin Sodium (Porcine) (Heparin Sodium) 5,000 units IVPUSH ONETIME ONE Stop: 11/03/18 22:41 Last Admin: 11/03/18 23:02 Dose: 5,000 units Sodium Chloride (Normal Saline) 1,000 mls @ 150 mls/hr IV STAT ONE Stop: 11/04/18 03:47 Last Admin: 11/03/18 21:28 Dose: 150 mls/hr Heparin Sodium/Sodium Chloride (Heparin-1/2ns 25,000 Units/500) 25,000 unit in 500 mls @ 37.786 mls/hr IV TITRATE HERMANN; Protocol Last Admin: 11/04/18 10:44 Dose: 20 units/kg/hr, 41.984 mls/hr Iopamidol (Isovue-370 (76%)) 100 ml IVPUSH ONETIME ONE Stop: 11/03/18 20:23 Last Admin: 11/03/18 21:10 Dose: 100 ml Levothyroxine Sodium (Synthroid) 88 mcg PO ACBREAKFAST HERMANN Last Admin: 11/05/18 07:11 Dose: 88 mcg Rivaroxaban (Xarelto) 15 mg PO NOW STA Stop: 11/05/18 14:29 Last Admin: 11/05/18 14:43 Dose: 15 mg Sodium Chloride (Saline Flush) 10 ml FLUSH ASDIRECTED PRN PRN Reason: Keep Vein Open Sodium Chloride (Saline Flush) 2.5 ml FLUSH ASDIRECTED PRN PRN Reason: Keep Vein Open Sodium Chloride (Saline Flush) 10 ml FLUSH ASDIRECTED PRN PRN Reason: Keep Vein Open Sodium Chloride (Saline Flush) 2.5 ml FLUSH ASDIRECTED PRN PRN Reason: Keep Vein Open <Mark Obrien - Last Filed: 11/06/18 11:32> Discharge Summary - Hospital Course HPI Initial Comments: I have seen and examined the patient independently of Dr. Josiane MD. I have reviewed and agree with the plan of care as outlined by Dr. Joshua and agree with the plan as outlined by this resident. I have discussed the case with the resident. Please see orders. - Discharge Diagnosis/Problem(s) (1) Bilateral pulmonary embolism SNOMED Code(s): 49238490 ICD Code: I26.99 - OTHER PULMONARY EMBOLISM WITHOUT ACUTE COR PULMONALE Status: Acute Priority: High (2) Memory deficits SNOMED Code(s): 769537136 ICD Code: R41.3 - OTHER AMNESIA Status: Chronic Priority: Medium (3) Noncompliance with medication regimen SNOMED Code(s): 866274189 ICD Code: Z91.14 - PATIENT'S OTHER NONCOMPLIANCE WITH MEDICATION REGIMEN Status: Chronic Priority: High (4) Thrombophilia SNOMED Code(s): 233941102 ICD Code: D68.59 - OTHER PRIMARY THROMBOPHILIA Status: Chronic Priority: High (5) Hypothyroidism SNOMED Code(s): 50264693 ICD Code: E03.9 - HYPOTHYROIDISM, UNSPECIFIED Status: Chronic Priority: High Qualifiers: Hypothyroidism type: acquired Qualified Code(s): E03.9 - Hypothyroidism, unspecified - Patient Data Vitals - Most Recent: Last Vital Signs Temp 36.2 C 11/05/18 11:00 Pulse 98 11/05/18 11:00 Resp 18 11/05/18 11:00 BP 130/56 L 11/05/18 11:00 Pulse Ox 95 11/05/18 11:00 I&O - Last 24 hours: Intake & Output 11/05/18 11/06/18 11/06/18 22:59 06:59 14:59 Intake Total 300 Output Total 950 Balance -650 Med Orders - Current: Current Medications Discontinued Medications Acetaminophen (Tylenol) 650 mg PO Q6H PRN PRN Reason: Pain Albuterol (Proventil Neb Soln) 2.5 mg NEB Q2H PRN PRN Reason: Shortness Of Breath/wheezing Enoxaparin Sodium (Lovenox) 100 mg SUBCUT ONETIME ONE Stop: 11/03/18 20:28 Last Admin: 11/03/18 20:46 Dose: 100 mg Enoxaparin Sodium (Lovenox) 150 mg SUBCUT Q12H HERMANN Enoxaparin Sodium (Lovenox) 100 mg SUBCUT Q12H HERMANN Last Admin: 11/05/18 04:41 Dose: 100 mg Heparin Sodium (Porcine) (Heparin Sodium) 5,000 units IVPUSH ONETIME ONE Stop: 11/03/18 22:41 Last Admin: 11/03/18 23:02 Dose: 5,000 units Sodium Chloride (Normal Saline) 1,000 mls @ 150 mls/hr IV STAT ONE Stop: 11/04/18 03:47 Last Admin: 11/03/18 21:28 Dose: 150 mls/hr Heparin Sodium/Sodium Chloride (Heparin-1/2ns 25,000 Units/500) 25,000 unit in 500 mls @ 37.786 mls/hr IV TITRATE HERMANN; Protocol Last Admin: 11/04/18 10:44 Dose: 20 units/kg/hr, 41.984 mls/hr Iopamidol (Isovue-370 (76%)) 100 ml IVPUSH ONETIME ONE Stop: 11/03/18 20:23 Last Admin: 11/03/18 21:10 Dose: 100 ml Levothyroxine Sodium (Synthroid) 88 mcg PO ACBREAKFAST HERMANN Last Admin: 11/05/18 07:11 Dose: 88 mcg Rivaroxaban (Xarelto) 15 mg PO NOW STA Stop: 11/05/18 14:29 Last Admin: 11/05/18 14:43 Dose: 15 mg Sodium Chloride (Saline Flush) 10 ml FLUSH ASDIRECTED PRN PRN Reason: Keep Vein Open Sodium Chloride (Saline Flush) 2.5 ml FLUSH ASDIRECTED PRN PRN Reason: Keep Vein Open Sodium Chloride (Saline Flush) 10 ml FLUSH ASDIRECTED PRN PRN Reason: Keep Vein Open Sodium Chloride (Saline Flush) 2.5 ml FLUSH ASDIRECTED PRN PRN Reason: Keep Vein Open
--- NOTE | 2018-11-15 11:36 | ECHO ---
The echocardiogram report can be seen in this patient's EMR (Electronic Medical Record) in the Reports section. The echocardiogram report has also been scanned into PACS and can be seen there as well. ANDIE
== END 2018-11-05 16:20 | disposition home or self-care (01) ==
LOC: MW.ED 19:10 → MW.MS 21:21
PROVIDERS: ADMIT Internal Medicine; ATTEND Internal Medicine
DX: I26.99 Other pulmonary embolism without acute cor pulmonale (principal); R41.3 Other amnesia; D68.59 Other primary thrombophilia; E03.9 Hypothyroidism, unspecified; D68.51 Activated protein C resistance; Z79.899 Other long term (current) drug therapy; Z91.14 Patient's other noncompliance with medication regimen; Z88.5 Allergy status to narcotic agent
CPT/HCPCS: 36415; 71045; 71275; 80048; 80053; 84443; 84484; 85025; 85610; 85730; 93005; 93306; 93971; 96372; 99285; A9270; J1644; J1650; J7040; Q9967; 96361; 96365; 96366; 99283; G0378